=== PATIENT | male | born 1945 | race Caucasian/White ===

== ENCOUNTER → 2019-01-09 | Outpatient (CLI) | payer MEDICARE ==
[2019-01-09 14:29] LABS: African American GFR (CKD) >90 (>60 ml/min/1.73 sqM); Blood Urea Nitrogen 14 mg/dL (9-20)
--- NOTE | 2019-01-09 15:59 | CT ---
EXAMINATION TYPE: CT abdomen pelvis w con DATE OF EXAM: 01/09/2019 COMPARISON: None. HISTORY: Abdominal pain. CT DLP: 1469 mGycm, Automated Exposure Control for Dose Reduction was Utilized. CONTRAST: CT scan of the abdomen and pelvis is performed with oral and with IV Contrast, patient injected with 100ml mL of Isovue 300. FINDINGS: LUNG BASES: There is left greater than right bibasilar linear scarring and/or atelectasis. Coronary a rtery calcification is present which is noted marker for underlying coronary artery disease. LIVER/GB: No significant abnormality is appreciated. PANCREAS: No significant abnormality is seen. SPLEEN: No significant abnormality is seen. ADRENALS: No significant abnormality is seen. KIDNEYS: Cortical thinning in both kidneys. Symmetric cortical medullary uptake and excretion without hydronephrosis seen bilaterally. BOWEL: Oral contrast reaches the rectum diverticula throughout the colon with prominent diverticulosi s in the sigmoid colon. No CT evidence for acute diverticulitis. No suspicious small or large bowel d ilatation. Normal contrast-filled appendix right pelvis. PROSTATE/SEMINAL VESICLES: Central calcifications and prostate gland measuring upper limits of normal . LYMPH NODES: No greater than 1cm abdominal or pelvic lymph nodes are appreciated. Slightly prominent but subcentimeter lymph nodes with mild haziness mesenteric fat axial image 43. OSSEOUS STRUCTURES: Large bridging osteophytes in the thoracolumbar spine with preservation of disc s pace, DISH is suspected. OTHER: There is large right inguinal hernia containing fat and mesenteric vessels as well as portions of contrast-filled small bowel or ileal loops. No suspicious dilatation is seen to suggest obstructi on. IMPRESSION: 1. Mild may mesentery appearance, correlate for mesenteric panniculitis. 2. Prominent sigmoid colonic diverticulosis without CT evidence for acute diverticulitis. Large right inguinal hernia containing distal ileal loop without obstruction. Advise surgical referral.
== END | disposition home or self-care (01) ==
LOC: RADCTMAIN 13:41
PROVIDERS: ATTEND Family Medicine
DX: K57.30 Diverticulosis of large intestine without perforation or abscess without bleeding (principal); K40.90 Unilateral inguinal hernia, without obstruction or gangrene, not specified as recurrent
CPT/HCPCS: 82565; 84520; 74177; 36415; 49507; Q9967

== ENCOUNTER 2019-12-06 13:14 | Emergency (ER) | payer MEDICARE ==
[2019-12-06] MEDS ORDERED: PANTOPRAZOLE 40 MG/10 ML VIAL IVP STA (14:04)
[2019-12-06] MEDS ORDERED: MORPHINE SULFATE 2 MG/ML SYRINGE IVP STA (14:04)
[2019-12-06] MEDS ORDERED: SODIUM CHLORIDE 0.9% 1,000 ML IV STA (14:04)
[2019-12-06 14:14] LABS: Basophils % (A) 1 %; Eosinophils # (A) 0.1 k/uL (0-0.7); Eosinophils % (A) 2 %; HCT 50.9 % (39.0-53.0); HGB 16.6 gm/dL (13.0-17.5); Lymphocytes # (A) 1.5 k/uL (1.0-4.8); Lymphocytes % (A) 24 %; MCH 30.6 pg (25.0-35.0); MCHC 32.5 g/dL (31.0-37.0); MCV 94.2 fL (80.0-100.0); Mean Platelet Volume 7.4; Monocytes # (A) 0.5 k/uL (0-1.0); Monocytes % (A) 8 %; Neutrophils % (A) 64 %; Platelet Count 247 k/uL (150-450); RDW 12.7 % (11.5-15.5); WBC 6.3 k/uL (3.8-10.6)
[2019-12-06 14:19] LABS: ALT 26 U/L (4-49); AST 26 U/L (17-59); African American GFR (CKD) >90 (>60 ml/min/1.73 sqM); Albumin 4.4 g/dL (3.5-5.0); Alkaline Phosphatase 96 U/L (38-126); Amylase 62 U/L (30-110); Anion Gap 8 mmol/L; Blood Urea Nitrogen 16 mg/dL (9-20); Calcium 9.5 mg/dL (8.4-10.2); Carbon Dioxide 22 mmol/L (22-30); Chloride 106 mmol/L (98-107); Glucose 95 mg/dL (74-99); Non-African American GFR(CKD) 84 (>60 ml/min/1.73 sqM); Potassium 4.1 mmol/L (3.5-5.1); Sodium 136 mmol/L (137-145); Total Bilirubin 1.2 mg/dL (0.2-1.3)
--- NOTE | 2019-12-06 14:23 | ED ---
Abdominal Pain HPI - General Chief Complaint: Abdominal Pain Stated Complaint: abd pain Time Seen by Provider: 12/06/19 13:53 Source: patient Mode of arrival: wheelchair Limitations: no limitations - History of Present Illness Initial Comments: Patient is a 74-year-old male presenting to the emergency Department with complaints of abdominal pain has been increasing over the past 3 weeks. He states that is mostly on his upper abdomen as well as some bloating. Patient states he normally has daily bowel movements but lately has been increased and his last bowel movement was approximately 4 days ago. He states he sometimes goes a week without. He denies any fever, chills, nausea, vomiting, diarrhea. He admits to hernia repair, no other abdominal surgeries. He denies any chest pain, shortness of breath. He denies history of all obstructions. He has no further complaints at this time. Upon arrival to the ER his vitals are stable. - Related Data Previous Rx's Medication Instructions Recorded Pantoprazole [Protonix] 40 mg PO DAILY 30 Days #30 12/06/19 tablet. Allergies Allergy/AdvReac Type Severity Reaction Status Date / Time No Known Allergies Allergy Verified 12/06/19 13:31 Review of Systems ROS Statement: Those systems with pertinent positive or pertinent negative responses have been documented in the HPI. ROS Other: All systems not noted in ROS Statement are negative. Past Medical History Past Medical History: No Reported History History of Any Multi-Drug Resistant Organisms: None Reported Past Surgical History: Hernia Repair Past Psychological History: No Psychological Hx Reported Smoking Status: Never smoker Past Alcohol Use History: None Reported Past Drug Use History: None Reported General Exam - General Exam Comments Initial Comments: GENERAL: Well-appearing, well-nourished and in no acute distress. HEAD: Atraumatic, normocephalic. EYES: Pupils equal round and reactive to light, extraocular movements intact, sclera anicteric, conjunctiva are normal. ENT: TMs normal, nares patent, oropharynx clear without exudates. Moist mucous membranes. NECK: Normal range of motion, supple without lymphadenopathy or JVD. LUNGS: Breath sounds clear to auscultation bilaterally and equal. No wheezes rales or rhonchi. HEART: Regular rate and rhythm without murmurs, rubs or gallops. ABDOMEN: Tender to palpation epigastric and upper abdomen area, abdomen seems mildly distended. Soft, normoactive bowel sounds. No guarding, no rebound. No masses appreciated. : Deferred EXTREMITIES: Normal range of motion, no pitting or edema. No clubbing or cyanosis. NEUROLOGICAL: Cranial nerves II through XII grossly intact. Normal speech, normal gait. PSYCH: Normal mood, normal affect. SKIN: Warm, Dry, normal turgor, no rashes or lesions noted. Limitations: no limitations Course Vital Signs 12/06/19 13:32 Temperature 98.4 F Pulse Rate 78 Respiratory 18 Rate Blood Pressure 155/91 O2 Sat by Pulse 96 Oximetry Medical Decision Making - Medical Decision Making Patient is 74-year-old male here for increasing abdominal pain 3 weeks. Vitals are stable. Exam reveals tenderness of the epigastric area, mild distention. Lab work shows no acute abnormalities, lipase is normal, urine shows no signs of infection. Computed tomography scan shows gastric fold thickening, prominent fluid-filled small bowel loops, correlate gastroenteritis. There is some wall thickening in the left lateral half of the lower rectum, recommended follow-up. No signs of acute diverticulitis. Patient was given fluids, Protonix, pain control. He reports improvement in his symptoms. His symptoms are mostly related to an ulcer, possible gastroenteritis. He is to follow-up with his PCP and recommended a colonoscopy/endoscope. I will start patient on Protonix. He is in agreement with this plan of care. He is stable for discharge. Return parameters were discussed with the patient he verbalizes understanding. Case discussed with Dr. Armenta. - Lab Data Result diagrams: 12/06/19 13:51 12/06/19 13:51 Lab Results 12/06/19 12/06/19 12/06/19 Range/Units 13:51 13:51 13:51 WBC 6.3 (3.8-10.6) k/uL RBC 5.40 (4.30-5.90) m/uL Hgb 16.6 (13.0-17.5) gm/dL Hct 50.9 (39.0-53.0) % MCV 94.2 (80.0-100.0) fL MCH 30.6 (25.0-35.0) pg MCHC 32.5 (31.0-37.0) g/dL RDW 12.7 (11.5-15.5) % Plt Count 247 (150-450) k/uL Neutrophils % 64 % Lymphocytes % 24 % Monocytes % 8 % Eosinophils % 2 % Basophils % 1 % Neutrophils # 4.0 (1.3-7.7) k/uL Lymphocytes # 1.5 (1.0-4.8) k/uL Monocytes # 0.5 (0-1.0) k/uL Eosinophils # 0.1 (0-0.7) k/uL Basophils # 0.0 (0-0.2) k/uL PT 9.8 (9.0-12.0) sec INR 0.9 (<1.2) APTT 24.2 (22.0-30.0) sec Sodium 136 L (137-145) mmol/L Potassium 4.1 (3.5-5.1) mmol/L Chloride 106 (98-107) mmol/L Carbon Dioxide 22 (22-30) mmol/L Anion Gap 8 mmol/L BUN 16 (9-20) mg/dL Creatinine 0.91 (0.66-1.25) mg/dL Est GFR (CKD-EPI)AfAm >90 (>60 ml/min/1.73 sqM) Est GFR (CKD-EPI)NonAf 84 (>60 ml/min/1.73 sqM) Glucose 95 (74-99) mg/dL Plasma Lactic Acid Steve (0.7-2.0) mmol/L Calcium 9.5 (8.4-10.2) mg/dL Total Bilirubin 1.2 (0.2-1.3) mg/dL AST 26 (17-59) U/L ALT 26 (4-49) U/L Alkaline Phosphatase 96 (38-126) U/L Total Protein 8.0 (6.3-8.2) g/dL Albumin 4.4 (3.5-5.0) g/dL Amylase 62 (30-110) U/L Lipase 69 (23-300) U/L Urine Color Urine Appearance (Clear) Urine pH (5.0-8.0) Ur Specific Morrison (1.001-1.035) Urine Protein (Negative) Urine Glucose (UA) (Negative) Urine Ketones (Negative) Urine Blood (Negative) Urine Nitrite (Negative) Urine Bilirubin (Negative) Urine Urobilinogen (<2.0) mg/dL Ur Leukocyte Esterase (Negative) 12/06/19 12/06/19 Range/Units 13:51 13:51 WBC (3.8-10.6) k/uL RBC (4.30-5.90) m/uL Hgb (13.0-17.5) gm/dL Hct (39.0-53.0) % MCV (80.0-100.0) fL MCH (25.0-35.0) pg MCHC (31.0-37.0) g/dL RDW (11.5-15.5) % Plt Count (150-450) k/uL Neutrophils % % Lymphocytes % % Monocytes % % Eosinophils % % Basophils % % Neutrophils # (1.3-7.7) k/uL Lymphocytes # (1.0-4.8) k/uL Monocytes # (0-1.0) k/uL Eosinophils # (0-0.7) k/uL Basophils # (0-0.2) k/uL PT (9.0-12.0) sec INR (<1.2) APTT (22.0-30.0) sec Sodium (137-145) mmol/L Potassium (3.5-5.1) mmol/L Chloride (98-107) mmol/L Carbon Dioxide (22-30) mmol/L Anion Gap mmol/L BUN (9-20) mg/dL Creatinine (0.66-1.25) mg/dL Est GFR (CKD-EPI)AfAm (>60 ml/min/1.73 sqM) Est GFR (CKD-EPI)NonAf (>60 ml/min/1.73 sqM) Glucose (74-99) mg/dL Plasma Lactic Acid Steve 1.1 (0.7-2.0) mmol/L Calcium (8.4-10.2) mg/dL Total Bilirubin (0.2-1.3) mg/dL AST (17-59) U/L ALT (4-49) U/L Alkaline Phosphatase (38-126) U/L Total Protein (6.3-8.2) g/dL Albumin (3.5-5.0) g/dL Amylase (30-110) U/L Lipase (23-300) U/L Urine Color Yellow Urine Appearance Clear (Clear) Urine pH 6.0 (5.0-8.0) Ur Specific Morrison 1.005 (1.001-1.035) Urine Protein Negative (Negative) Urine Glucose (UA) Negative (Negative) Urine Ketones 1+ (Negative) Urine Blood Negative (Negative) Urine Nitrite Negative (Negative) Urine Bilirubin Negative (Negative) Urine Urobilinogen <2.0 (<2.0) mg/dL Ur Leukocyte Esterase Negative (Negative) Disposition Clinical Impression: Epigastric abdominal pain Disposition: HOME SELF-CARE Condition: Stable Instructions (If sedation given, give patient instructions): Epigastric Pain (ED) Additional Instructions: Please return to the Emergency Department if symptoms worsen or any other concerns. Take medication as prescribed. Follow up with PCP in regards to a possible colonoscopy, endoscope. Prescriptions: Pantoprazole [Protonix] 40 mg PO DAILY 30 Days #30 tablet.dr Is patient prescribed a controlled substance at d/c from ED?: No Referrals: Nabeel Cuellar MD [Primary Care Provider] - 1-2 days
[2019-12-06 14:25] LABS: INR 0.9 (<1.2); Partial Thromboplastin Time 24.2 sec (22.0-30.0); Prothrombin Time 9.8 sec (9.0-12.0)
[2019-12-06 14:28] LABS: Appearance,Urine Clear (Clear); Bilirubin,Urine Negative (Negative); Color,Urine Yellow; Glucose,Urine (UA) Negative (Negative); Ketones,Urine 1+ (Negative); Protein,Urine Negative (Negative); Specific Gravity,Urine 1.005 (1.001-1.035)
[2019-12-06 14:29] LABS: Blood,Urine Negative (Negative); Leukocyte Esterase,Urine Negative (Negative); Nitrite,Urine Negative (Negative); Urobilinogen,Urine <2.0 mg/dL (<2.0)
--- NOTE | 2019-12-06 15:17 | CT ---
EXAMINATION TYPE: CT abdomen pelvis w con DATE OF EXAM: 12/06/2019 COMPARISON: 01/09/2019 HISTORY: 74-year-old male Abdominal pain and bloating TECHNIQUE: Contiguous axial scanning of the abdomen and pelvis following administration of 100 ml Iso jaxon 300 IV contrast. Delayed images through the kidneys and coronal/sagittal reconstructions perform ed. CT DLP: 1092.7 mGycm Automated exposure control for dose reduction was used. FINDINGS: Heart borderline enlarged without pericardial effusion. Extensive LAD and RCA coronary artery calcifi cations are present. Dependent atelectasis without pleural effusion. Moderate sized hiatal hernia. Some fold thickening along the gastric fundus and body with some hypere amrit. No focal liver lesion or biliary ductal dilatation. Portal venous system is patent. Gallbladder, adrenal glands, left kidney, spleen, and pancreas appear within normal limits. Tiny cortical hypodensity anterior lower pole right kidney measures 1.0 cm versus 9 mm on 01/09/2019, likely small complicated cyst. Some prominent fluid-filled small bowel loops left midabdomen. No dilated small bowel, free fluid, or free air. Normal appendix. Mild scattered stool. Scattered left-sided colonic diverticulosis, extensive within the sigmoid colon. No pericolic inflammatory change. No mesenteric or retroperitoneal lymphadenopathy. Some subtle central abdominal Everardo mesentery remai ns unchanged suggesting chronic postinflammatory etiology. Moderate circumferential bladder wall thickening. Prostate gland mildly enlarged at 4.7 cm wide. No a bnormal fluid collection the pelvis or pelvic lymphadenopathy. There is some eccentric broad-based mural thickening along the left lateral half of the lower rectum, or first axial image 93 and 94. The previously seen right-sided inguinal hernia has resolved. Tiny fatty umbilical hernia. Bones: Mild degenerative change of the hips. Degenerative bridging ankylosis at the SI joints. Facet arthropathy mid to lower lumbar spine. Bridging anterior endplate spondylosis thoracic spine compatib le with DISH. IMPRESSION: 1. GASTRIC FOLD THICKENING WITH SOME HYPEREMIA. PROMINENT FLUID-FILLED SMALL BOWEL LOOPS IN THE LEFT SIDE OF THE ABDOMEN ALSO NOTED. CORRELATE FOR POSSIBLE GASTROENTERITIS. 2. ECCENTRIC WALL THICKENING ALONG THE LEFT LATERAL HALF OF THE LOWER RECTUM. DIRECT VISUALIZATION RE COMMENDED TO EXCLUDE RECTAL NEOPLASM. 3. EXTENSIVE SIGMOID DIVERTICULOSIS WITHOUT ACUTE DIVERTICULITIS. 4. SUBTLE MIDABDOMINAL EVERARDO MESENTERY UNCHANGED FROM 01/09/2019 SUGGESTING A CHRONIC POSTINFLAMMATORY ETIOLOGY.
[2019-12-06] MEDS ORDERED: MAG HYDROX/AL HYDROX/SIMETH 30 ML, HYOSCYAMINE ELIXIR 10 ML, LIDOCAINE VISCOUS 2% 10 ML PO STA ×3 (15:25)
[2019-12-06 15:59] VITALS: TEMP 98
[2019-12-06 16:00] VITALS: BP 155/77; PULSE 75; RESP 20
== END 2019-12-06 15:59 | disposition home or self-care (01) ==
LOC: EC 13:14
DX: R10.13 Epigastric pain (principal); R14.0 Abdominal distension (gaseous); R93.5 Abnormal findings on diagnostic imaging of other abdominal regions, including retroperitoneum; K62.89 Other specified diseases of anus and rectum
CPT/HCPCS: 36415; 80053; 82150; 83605; 83690; 85025; 85610; 85730; 81003; 74177; 99284; 96374; 96375; 96361; J2270; C9113; Q9967